=== PATIENT | male | born 1980 | race Two or more races ===

== ENCOUNTER → 2019-04-04 | Outpatient (CLI) | payer OTHER ==
--- NOTE | 2019-04-04 11:01 | Diagnostic Imaging Report ---
Indication: Right wrist pain COMPARISON: None Findings: 3 views of the right wrist were obtained. No acute fractures, malalignment, erosions or periostitis are identified. Soft tissue swelling noted. Impression: No acute findings.
== END | disposition home or self-care (01) ==
LOC: RAD 09:30
DX: M25.531 Pain in right wrist (principal)